=== PATIENT | female | born 1995 | race Caucasian/White ===

== ENCOUNTER 2017-02-03 22:54 | Emergency (ER) | payer OTHER ==
[~2017-02-03 22:54] MED LIST: AZITHROMYCIN250 MG PO; FLONASE16 GM
== END 2017-02-04 02:50 | disposition home or self-care (01) ==
LOC: CED 22:54
DX: N61.0 Mastitis without abscess (principal); E28.2 Polycystic ovarian syndrome; E11.9 Type 2 diabetes mellitus without complications; F98.8 Other specified behavioral and emotional disorders with onset usually occurring in childhood and adolescence; Z88.8 Allergy status to other drugs, medicaments and biological substances; E06.3 Autoimmune thyroiditis
CPT/HCPCS: 99282